=== PATIENT | male | born 1965 | race Caucasian/White ===

== ENCOUNTER 2020-04-29 11:50 | Emergency (ER) | payer BC, SELFPAY ==
[2020-04-29 12:24] VITALS: BP 133/79; PULSE 76; RESP 19; TEMP 36.8; O2SAT 99; BMI 30.1
--- NOTE | 2020-04-29 12:28 | HMH.EDUTC ---
[facility] [place]ression: Encounter for laboratory testing for COVID-19 virus Disposition: Home, Self-Care Condition on Discharge: Good Instructions: Preventing the Spread of Coronavirus Discharge Instructions Additional Instructions: You was tested for today for COVID19 your test result should be back tomorrow evening after 3pm, you may call back later in the evening tomorrow to see if your test results are back and the result You was given a handout with instructions for Self Quarantine and Self isolation for while you wait on test results and what to do if they are positive Return if needed Straight to ER if any life threatening symptoms Referrals: PCP,No [Primary Care Provider] - As needed Forms: Work/School Release Time of Disposition: 12:32 Medical Decision Making - Ty Inquiry Pt receiving controlled substance: No Ty was queried for this patient: No Vital Signs: 04/29/20 12:24 Temperature 98.2 F Temperature Source Oral Pulse Rate [Right Brachial] 76 Respiratory Rate 19 Blood Pressure [Right Arm] 133/79 Blood Pressure Mean [Right Arm] 97 Blood Pressure Source [Right Arm] Automatic Cuff Blood Pressure Position [Right Arm] Sitting 02 Sat by Pulse Oximetry 99 Oxygen Delivery Method Room Air Orders (Tests/Meds): ORDERS Category Date Time Status Covid-19 Nasal PCR ([facility]) Routine Lab 04/29/20 12:00 Ordered Covid-19 Nasal PCR Sendout [facility] Stat Lab 04/29/20 12:[address] [facility] [place] - General Stated complaint: exposed to covid Time Seen by Provider: 04/29/20 12:28 Mode of Arrival: Ambulatory Source of Information: Patient Limitations: No Limitations Description of Symptoms (Recalled from Triage Doc. by RN): PATIENT NEEDING COVID TEST. EXPOSED TO COWORKER WHO TESTED POSITIVE YESTERDAY, DENIES SYMPTOMS HEENT Symptoms (Recalled from RN notes): No Resp Symptoms (Recalled from RN notes): No Skin Symptoms (Recalled from RN notes): No MS Symptoms (Recalled from RN notes): No Functional Status (Recalled from RN notes): WNL - History of Present Illness Provider Complaint: Patient states that they was sent for COVID testing due to recent exposure to another employee that recently tested positive for COVID States that he isnt having any symptoms - Related Data Allergies Allergy/AdvReac Type Severity Reaction Status Date / Time No Known Allergies Allergy Verified 10/15/19 11:23 - Worker's Comp Is this a Worker's Comp case?: No [facility] History - Hepatitis A Screen Drug use history?: No High risk sexual behaviors?: No History of sexually transmitted infection?: No Currently employed?: No Childcare worker?: No Do you have indoor plumbing?: Yes Do you have electricity?: Yes Attestation statement:: This patient has been screened for Hepatitis A risk factors. I have reviewed the patient's past medical history: Yes - Social History Alcohol Intake: never Occupational Status: other ROS Obtained: Yes All systems reviewed & no additional complaints, Yes Systems reviewed as appropriate & no additional complaints - Constitutional Constitutional: Reports system reviewed and no additional complaints, except as docu, Denies body ache, Denies chills, Denies fever(s) - ENT Ears, Nose, Mouth, and Throat: Reports system reviewed and no additional complaints, except as docu, Denies nasal congestion, Denies nasal discharge, Denies sore throat - Cardiovascular Cardiovascular: Reports system reviewed and no additional complaints, except as docu - Respiratory Respiratory: No cough, No dyspnea - Gastrointestinal Gastrointestingal: Denies: diarrhea, nausea, vomiting Physical Exam - General General appearance: alert, in no apparent distress - ENT ENT exam: Present: normal exam, normal oropharynx, mucous membranes moist, TM's normal bilaterally, normal external ear exam - Respiratory Respiratory exam: Present: normal lung sounds bilaterally. Absent: respiratory distress - Card
[2020-04-29 12:43] VITALS: BP 133/79; PULSE 76; RESP 19; TEMP 36.8; O2SAT 99
[2020-04-30 13:28] LABS: Covid-19 Nasal PCR Sendout Lex NOT DETECTED
== END 2020-04-29 12:45 | disposition home or self-care (01) ==
PROVIDERS: Emergency Provider Nurse Practitioner
DX: Z20.828 Contact with and (suspected) exposure to other viral communicable diseases (principal)
CPT/HCPCS: 99201; U0004

== ENCOUNTER 2020-06-07 08:06 | Emergency (ER) | payer BC, SELFPAY ==
[2020-06-07 08:12] VITALS: BP 119/82; PULSE 89; RESP 16; TEMP 36.6; O2SAT 98; BMI 30.1
--- NOTE | 2020-06-07 08:21 | XR_ITS ---
PROCEDURE: XR SHOULDER RT MIN 2V CLINICAL INDICATION: pain Right shoulder pain COMPARISON: No exams were available for comparison FINDINGS: There are mild osteoarthritic changes of the right acromioclavicular joint and glenohumeral joint. No acute fracture or dislocation. No lytic or blastic change Other findings:None. IMPRESSION: Mild osteoarthritis Dictated by: Michael Ramon MD 06/07/2020 09:14 Michael Ramon MD in [place] 06/07/2020 09:14
--- NOTE | 2020-06-07 08:21 | CT_ITS ---
PROCEDURE: CT CERVICAL SPINE WO CON CLINICAL INDICATION: pain Neck pain radiating into both shoulders. COMPARISON: No exams were available for comparison TECHNIQUE: Axial images obtained with sagittal and coronal reformats. All CT scans at the facility use one or more dose reduction, viz: automated exposure control, ma/kV adjustment per patient size (including targeted exams where dose is matched to indication, i.e. head), or iterative reconstruction technique. Axial spiral CT scanning performed of the cervical spine beginning at the base of the skull and continuing to the upper T-spine. 3-D multiplanar reconstruction with 3-D manipulation of volumetric data set in image rendering was completed by the radiologist and/or technologist with the supervision of the radiologist on independent workstation. FINDINGS: Normal alignment. No fracture or dislocation. C2-C3: Small broad-based central disc protrusion. C3-C4: Degenerative disc disease with broad-based central disc protrusion-disc osteophyte complex with canal stenosis of 7 mm and bilateral foraminal narrowing from uncovertebral hypertrophy. C4-C5: Degenerative disc disease with minimal posterior disc ossification. There is moderate to severe right foraminal narrowing from facet and uncovertebral hypertrophy. C5-C6: Degenerate disc disease with canal stenosis. Left lateral recess and foraminal narrowing from uncovertebral hypertrophy with mild right foraminal narrowing from uncovertebral hypertrophy. C6-C7 and C7-T1: Unremarkable. Thyroid gland is enlarged on both sides right greater than left. Scattered small nodes are present in the neck. IMPRESSION: Multilevel cervical spondylosis with degenerative disc disease, canal stenosis and lateral recess and foraminal narrowing. Please see above for detailed description at each level. Dictated by: Michael Ramon MD 06/07/2020 09:12 Michael Ramon MD in [place] 06/07/2020 09:12
--- NOTE | 2020-06-07 08:39 | XR_ITS ---
PROCEDURE: XR SHOULDER LT MIN 2V CLINICAL INDICATION: pain Left shoulder pain COMPARISON: CR XR SHOULDER RT MIN 2V from 06/07/2020 FINDINGS: Moderate to severe osteoarthritic changes are present at the acromioclavicular joint with bony hypertrophy. There is subacromial stenosis. Mild osteoarthritic changes are present at the glenohumeral joint with some subchondral cystic changes at the greater tuberosity. No acute fracture or dislocation. There is an old fracture of the left 2nd rib. Other findings:None. IMPRESSION: Osteoarthritic changes with subacromial stenosis. Dictated by: Michael Ramon MD 06/07/2020 09:14 Michael Ramon MD in [place] 06/07/2020 09:14
--- NOTE | 2020-06-07 08:43 | HMH.EDGENADL ---
ED Disposition Clinical Impression: Cervical spondylolysis, Herniated disc, cervical Degenerative joint disease Qualifiers: Osteoarthritis location: shoulder Osteoarthritis type: unspecified Laterality: bilateral Qualified Code(s): M19.011 - Primary osteoarthritis, right shoulder; M19.012 - Primary osteoarthritis, left shoulder Disposition: Home, Self-Care Condition on Discharge: Good Instructions: DI for Low Back Pain Additional Instructions: You were seen on an emergency basis. It is very important that you follow up with your primary care provider and/or specialist as we discussed within 2 days. All labs and imaging were obtained and interpreted here to rule out life threatening emergencies, but your final results should be reviewed by your primary doctor at your follow up appointment. Please return to the emergency department if any of your symptoms worsen, or if they do not improve as we discussed. Prescriptions: Cyclobenzaprine HCl [Flexeril 10mg tablet] 5 mg PO Q8HP PRN 30 Days #10 tab PRN Reason: Muscle Spasm Transmission Status: Pending to [id number] Referrals: PCP,No [Primary Care Provider] - Dell Holcomb MD [Staff Physician] - - Critical Care Critical Care Time: No Attestation: On 06/07/20, the high probability of a clinically significant, sudden or life threatening deterioration of the following system(s) required my full and direct attention, intervention and personal management. The time I documented below is in addition to time spent performing reported procedures but includes the following listed in this critical care notation. Medical Decision Making - Medical Records Medical records reviewed: Yes: I reviewed the patient's medical records. - Ty Inquiry Pt receiving controlled substance: No Vital Signs: 06/07/20 08:12 Temperature 98 F Temperature Source Oral Pulse Rate [Radial] 89 Respiratory Rate 16 Blood Pressure [Right Arm] 119/82 Blood Pressure Mean [Right Arm] 94 Blood Pressure Position [Right Arm] Sitting 02 Sat by Pulse Oximetry 98 Oxygen Delivery Method Room Air Orders (Tests/Meds): ED MEDICATIONS Discontinued Medications Generic Name Dose Route Start Last Admin Trade Name Freq PRN Reason Stop Dose Admin Diazepam 5 mg 06/07/20 08:20 06/07/20 08:37 Diazepam 5mg Tablet PO 06/07/20 08:21 5 mg ONCE ONE Administration Medical Decision Narrative: 55-year-old male presenting with atraumatic neck and shoulder pain. Nontoxic, afebrile, hemodynamically stable, nonfocal, neuro intact. X-ray of the right shoulder showed degenerative joint disease as did the x-ray of the left shoulder including the AC joint. CT C-spine without IV contrast was obtained and demonstrated multilevel degenerative disc disease, herniation and spondylolysis. Symptoms markedly improved after 5 mg of oral Valium. I will prescribe him Flexeril and he will continue to take Motrin and follow-up with orthopedics. General Adult HPI - General Chief complaint: Back Pain/Injury Stated complaint: shoulder and neck pain AO 06/05 Time Seen by Provider: 06/07/20 08:30 Mode of Arrival: Ambulatory Limitations: No Limitations Description of Symptoms (Recalled from ER Triage Doc. by RN): to ed per pvt car with c/o upper back pain across shoulders and neck starting th. after work states has been doing alot of lifting and pulling at work. denies known injury. 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 He states that he has been sore with decreased range of motion of his right shoulder due to the pain. No fever, chills, nausea, vomiting, chest pain, cough, shortness of breath, radicular symptoms, weakness. Ibuprofen has helped the pain. - Related Data Previo
[2020-06-07 10:03] VITALS: BP 122/74; PULSE 78; RESP 16; TEMP 36.6
== END 2020-06-07 10:04 | disposition home or self-care (01) ==
PROVIDERS: Emergency Provider Physician Assistant
DX: M43.02 Spondylolysis, cervical region (principal); M50.30 Other cervical disc degeneration, unspecified cervical region; M19.011 Primary osteoarthritis, right shoulder; X50.0XXA Overexertion from strenuous movement or load, initial encounter
CPT/HCPCS: 72125; 73030; 99282

== ENCOUNTER 2020-11-03 10:45 | Emergency (ER) | payer BC, SELFPAY ==
[2020-11-03 11:02] VITALS: BP 157/80; PULSE 80; RESP 14; TEMP 36.7; O2SAT 97; BMI 28.8
--- NOTE | 2020-11-03 11:07 | HMH.EDUTC ---
[facility] [place] Clinical Impression: Exposure to COVID-19 virus Acute bronchitis Qualifiers: Bronchitis organism: unspecified organism Qualified Code(s): J20.9 - Acute bronchitis, unspecified Disposition: Home, Self-Care Condition on Discharge: Good Instructions: Preventing the Spread of Coronavirus Discharge Instructions Additional Instructions: Drink plenty of fluids. Take tylenol for pain or fever. Return if you begin to have difficulty breathing. Follow up with your regular doctor. GO TO THE ER FOR ANY WORSENING SYMPTOMS Prescriptions: Benzonatate [Tessalon Perle 100mg Cap] 100 mg PO TIDP PRN #30 cap PRN Reason: Cough Transmission Status: Received by [id number] Azithromycin [Z-Addison 250mg Tab*] 250 mg PO UD DOSE PK #6 tab Transmission Status: Received by [facility] Referrals: PCP,No [Primary Care Provider] - Forms: Work/School Release Time of Disposition: 11:08 Medical Decision Making - Medical Records Medical records reviewed: No: I reviewed the patient's medical records. - Ty Inquiry Pt receiving controlled substance: No Vital Signs: 11/03/20 11:02 11/03/20 11:10 Temperature 98.1 F 98 F Temperature Source Oral Pulse Rate 77 Pulse Rate [Left] 80 Respiratory Rate 14 14 Blood Pressure 142/79 H Blood Pressure [Right Arm] 157/80 H Blood Pressure Mean [Right Arm] 105 Blood Pressure Source [Right Arm] Automatic Cuff Blood Pressure Position [Right Arm] Sitting 02 Sat by Pulse Oximetry 97 Oxygen Delivery Method Room Air [facility] [place] HPI - General Stated complaint: cov test Time Seen by Provider: 11/03/20 11:07 - History of Present Illness Provider Complaint: He states that he has been having a cough, chest congestion, and feeling bad for the past 2 days. He denies any known exposure to covid-19, but he feels like he needs to be tested. He denies any shortness of breath. - Related Data Previous Rx's Medication Instructions Recorded Azithromycin [Z-Addison 250mg Tab*] 250 mg PO UD DOSE PK #6 tab 11/03/20 Benzonatate [Tessalon Perle 100mg 100 mg PO TIDP PRN #30 cap 11/03/20 Cap] Allergies Allergy/AdvReac Type Severity Reaction Status Date / Time No Known Allergies Allergy Verified 11/03/20 11:06 [facility] History - Hepatitis A Screen Attestation statement:: This patient has been screened for Hepatitis A risk factors. I have reviewed the patient's past medical history: Yes ROS Obtained: Yes All systems reviewed & no additional complaints - Constitutional Constitutional: Reports chills, Denies fever(s), Reports poor appetite, Reports malaise - Eyes Eyes: Denies eye discharge - ENT Ears, Nose, Mouth, and Throat: Reports as per HPI - Cardiovascular Cardiovascular: Denies chest pain - Respiratory Respiratory: Reports chest congestion, Reports cough, Denies dyspnea, Denies stridor, Denies wheezing Physical Exam - General General appearance: alert, in no apparent distress - Head Head exam: atraumatic, normocephalic, normal inspection - Eye Eye exam: Present: normal appearance, PERRL, EOMI - ENT ENT exam: Present: normal exam, normal oropharynx, mucous membranes moist, TM's normal bilaterally, normal external ear exam - Neck Neck exam: Present: normal inspection, full ROM, trachea midline. Absent: meningismus, lymphadenopathy - Chest Chest inspection: Present: normal inspection, symmetric chest wall rise. Absent: tenderness - Respiratory Respiratory exam: Present: normal lung sounds bilaterally. Absent: respiratory distress - Cardiovascular Cardiovascular exam: Present: regular rate, normal rhythm. Absent: JVD - Abdominal Exam Abdominal exam: Present: soft, normal bowel sounds. Absent: distention, tenderness, guarding - Extremities Exam Extremities exam: Present: normal inspection, full ROM, normal capillary refill. Absent: calf tenderness - Back Exam Back exam: Present: normal inspection. Abs
[2020-11-03 11:10] VITALS: BP 142/79; PULSE 77; RESP 14; TEMP 36.6
== END 2020-11-03 11:24 | disposition home or self-care (01) ==
PROVIDERS: Emergency Provider Nurse Practitioner Family
DX: Z20.822 Contact with and (suspected) exposure to COVID-19 (principal); J20.9 Acute bronchitis, unspecified
CPT/HCPCS: 99202; G0463; U0003

== ENCOUNTER 2021-01-26 23:27 | Emergency (ER) | payer BC, SELFPAY ==
[2021-01-26 23:44] VITALS: BP 158/89; PULSE 89; RESP 14; TEMP 37.7; O2SAT 99; BMI 28.8
--- NOTE | 2021-01-26 23:52 | XR_ITS ---
PROCEDURE INFORMATION: Exam: XR Chest Exam date and time: 01/26/2021 11:52 PM Age: 55 years old Clinical indication: Patient HX: Inspiratory discomfort after covid shot #2 yesterday nausea, dizzy, weak TECHNIQUE: Imaging protocol: XR of the chest. Views: 2 views. COMPARISON: CR CXR CHEST(2 VIEWS-NOT PORTABLE) 10/12/2016 12:19 AM FINDINGS: Lungs: There is mild perihilar interstitial prominence of unknown acuity. There is no lobar consolidation. Pleural spaces: There is no pleural effusion or pneumothorax. Heart/Mediastinum: The cardiac silhouette and mediastinal contours are unremarkable. Bones/joints: The bones are grossly intact with mild spondylosis of the thoracic spine. IMPRESSION: Mild perihilar interstitial prominence of unknown acuity.
[2021-01-27 00:02] LABS: Basophils % 0.4 % (0.1-2.0); Eosinophils # 0.1 K/mm3 (0.0-0.4); Eosinophils % 2.1 % (0.1-12.0); Hematocrit 45.1 % (42.0-52.0); Hemoglobin 16.4 g/dL (14.1-18.0); Lymphocytes # 0.9 K/mm3 (0.7-4.5); Lymphocytes % 14.4 % (10-50); Mean Corpuscular HGB Conc 36.3 g/dL (31.8-35.4); Mean Corpuscular Volume 88.3 fl (80-94); Mean Platelet Volume 7.1 fl (7.4-10.4); Monocytes # 0.4 K/mm3 (0.1-1.0); Monocytes % 5.7 % (1.7-9.3); Neutrophils # 4.9 K/mm3 (1.8-7.8); Neutrophils % 77.3 % (37.0-80.0); Platelet Count 239 K/mm3 (142-424); Red Cell Distribution Width 13.2 % (11.5-17.5); White Blood Count 6.3 K/mm3 (4.8-10.8)
--- NOTE | 2021-01-27 00:03 | ECG_ITS ---
APPROVED REPORT Exam: Resting ECG HR:82 bpm ECG Measurements Heart Rate 82 AXES NH 150 P 57 QRSd 96 QRS 43 QT 346 T 22 QTc 404 Conclusion Normal sinus rhythm Incomplete right bundle branch block Cannot rule out Anterior infarct, age undetermined Abnormal ECG Electronically signed by : Barron Vail, 01/27/2021 21:18:14
[2021-01-27 00:10] LABS: Alanine Aminotransferase 33 U/L (12-78); Albumin Level 4.4 g/dl (3.5-5.0); Albumin/Globulin Ratio 1.4 (1.1-1.8); Alkaline Phosphatase 114 U/L (38-126); Aspartate Amino Transferase 32 U/L (17-59); Blood Urea Nitrogen 13 mg/dl (9-20); Calcium 8.8 mg/dl (8.4-10.2); Carbon Dioxide 22 mmol/L (22.0-30.0); Creatinine Clearance Estimated 95 mL/min (50-200); Estimated Glomerular Filt Rate 87 ml/min (>60); GFR (African American) 105 ML/MIN (>60); Globulin 3.1 g/dL (1.3-3.2); Glucose 156 mg/dl (74-100); Potassium 3.3 mmoL/L (3.5-5.1); Sodium 135 mmol/L (136-145); Total Protein,Serum 7.5 g/dl (6.3-8.2)
[2021-01-27 00:28] LABS: Troponin I < 0.01 ng/ml (0.00-0.034)
[2021-01-27 00:34] LABS: Erythrocyte Sedimentation Rate 9 mm/hr (0-20)
[2021-01-27 00:37] LABS: Anion Gap 15.3 mEq/L (5-15); Chloride 101 mmol/L (98-107)
--- NOTE | 2021-01-27 00:37 | HMH.EDFEV ---
ED Disposition Clinical Impression: Adverse reaction to COVID-19 vaccine Disposition: Home, Self-Care Condition on Discharge: Good Instructions: DI for Fever (Symptom) -- Adult Additional Instructions: fluids and call pcp for follow up Referrals: Provider,Referral, MD [Primary Care Provider] - - Critical Care Critical Care Time: No Attestation: On 01/26/21, the high probability of a clinically significant, sudden or life threatening deterioration of the following system(s) required my full and direct attention, intervention and personal management. The time I documented below is in addition to time spent performing reported procedures but includes the following listed in this critical care notation. Medical Decision Making - Medical Records Medical records reviewed: Yes: I reviewed the patient's medical records. - Ty Inquiry Pt receiving controlled substance: No Vital Signs: 01/26/21 23:44 Temperature 99.8 F H Temperature Source Oral Pulse Rate [Right Brachial] 89 Respiratory Rate 14 Blood Pressure [Right Arm] 158/89 H Blood Pressure Mean [Right Arm] 112 Blood Pressure Source [Right Arm] Automatic Cuff Blood Pressure Position [Right Arm] Sitting 02 Sat by Pulse Oximetry 99 Oxygen Delivery Method Room Air - Lab Data Lab results reviewed: Yes: I reviewed the patient's lab results. Lab Results 01/26/21 23:40: Troponin I < 0.01 01/26/21 23:40: WBC 6.3, RBC 5.10, Hgb 16.4, Hct 45.1, MCV 88.3, MCH 32.0 H, MCHC 36.3 H, RDW 13.2, Plt Count 239, MPV 7.1 L, Neut % (Auto) 77.3, Lymph % (Auto) 14.4, [place] % (Auto) 5.7, Eos % (Auto) 2.1, Baso % (Auto) 0.4, Neut # (Auto) 4.9, Lymph # (Auto) 0.9, [place] # (Auto) 0.4, Eos # (Auto) 0.1, Baso # (Auto) 0.0 01/26/21 23:40: Sodium 135 L, Potassium 3.3 L, Chloride 101, Carbon Dioxide 22, Anion Gap 15.3 H, BUN 13, Creatinine 0.90, Estimated Creat Clear 95, Estimated GFR 87, Est GFR ( Amer) 105, Glucose 156 H, Calcium 8.8, Total Bilirubin 1.0, AST 32, ALT 33, Alkaline Phosphatase 114, Total Protein 7.5, Albumin 4.4, Globulin 3.1, Albumin/Globulin Ratio 1.4 01/26/21 23:40: ESR 9 Result diagrams: 01/26/21 23:40 01/26/21 23:40 Orders (Tests/Meds): ED MEDICATIONS Generic Name Dose Route Start Last Admin Trade Name Freq PRN Reason Stop Dose Admin Sodium Chloride 1,000 mls @ 999 mls/hr 01/26/21 23:45 01/26/21 23:53 Sod Chlor 0.9% 1000ml Bag IV 01/27/21 00:45 999 mls/hr .Q1H1M CHRISTI Administration Discontinued Medications Generic Name Dose Route Start Last Admin Trade Name Freq PRN Reason Stop Dose Admin Acetaminophen 1,000 mg 01/26/21 23:52 01/26/21 23:55 Acetaminophen 500mg Tab PO 01/26/21 23:53 1,000 mg ONCE ONE Administration Ketorolac Tromethamine 30 mg 01/26/21 23:51 01/26/21 23:54 Ketorolac 30mg/Ml Vial IV 01/26/21 23:52 30 mg ONCE ONE Administration Ondansetron HCl 4 mg 01/26/21 23:51 01/26/21 23:54 Ondansetron 4mg/2ml Vial IV 01/26/21 23:52 4 mg ONCE ONE Administration ORDERS Category Date Time Status XR chest 2V Stat Exams 01/26/21 23:52 Taken C-Reactive Protein Stat Lab 01/26/21 23:40 Received Procalcitonin Stat Lab 01/26/21 23:40 Received Troponin I Q3H Lab 01/27/21 03:00 Ordered Troponin I Q3H Lab 01/27/21 06:00 Ordered - Radiology Data #1 Image(s): Chest Image Reviewed: Yes I reviewed the patient's radiology image Preliminary Findings: Normal/NAD - ECG Data Tracing #1 Normal Sinus Rhythm: Yes Ischemic changes: non-specific ST-T wave changes Medical Decision Narrative: reaction after covid-19 vaccine Fever HPI - General Chief Complaint: Fever Stated Complaint: nausea,dizzy,weak Time Seen by Provider: 01/27/21 00:00 Mode of Arrival: Family Vehicle Source of Information: Patient, Spouse, Medical Record Limitations: No Limitations Description of Symptoms (Recalled from ER Triage Doc. by RN): pt received second dose of covid vaccine yesterday and today
[2021-01-27 01:01] LABS: C-Reactive Protein 36.9 mg/L (0-4)
[2021-01-27 01:11] VITALS: BP 146/82; PULSE 84; RESP 14; TEMP 37.7; O2SAT 99
[2021-01-27 01:15] LABS: Procalcitonin 0.164 ng/mL (0.0-2.0)
== END 2021-01-27 01:14 | disposition home or self-care (01) ==
PROVIDERS: Emergency Provider Emergency Medicine
DX: T50.Z95A Adverse effect of other vaccines and biological substances, initial encounter (principal); R50.9 Fever, unspecified
CPT/HCPCS: 71046; 80053; 84145; 84484; 85025; 85651; 86140; 93005; 96365; 96375; 99282; J2405

== ENCOUNTER → 2021-04-17 11:11 | Outpatient (CLI) | payer BC, SELFPAY | PROVIDERS: Visit Provider Nurse Practitioner | DX: Z20.822 Contact with and (suspected) exposure to COVID-19 (principal) | CPT/HCPCS: C9803; U0003; U0005 ==

== ENCOUNTER 2021-10-22 17:35 | Emergency (ER) | payer BC, SELFPAY ==
[2021-10-22 19:30] VITALS: BP 146/90; PULSE 86; RESP 19; TEMP 36.6; O2SAT 98; BMI 29.2
[2021-10-22 19:43] LABS: Strep Scrn Group A (Rapid) Negative (Negative)
[2021-10-22 19:48] LABS: UTC Influenza A Antigen Negative (Negative); UTC Influenza B Antigen Negative (Negative)
[2021-10-22 19:59] VITALS: BP 146/90; PULSE 86; RESP 19; TEMP 36.6; O2SAT 98
--- NOTE | 2021-10-22 20:19 | HMH.EDUTC ---
[facility] [place] Disposition Clinical Impression: URI (upper respiratory infection) Qualifiers: URI type: unspecified URI Qualified Code(s): J06.9 - Acute upper respiratory infection, unspecified Disposition: Home, Self-Care Condition on Discharge: Good Instructions: Sore Throat, DI for Sinusitis, Sinusitis Additional Instructions: *Monitor Temp, Over the counter Motrin or Tylenol as directed/as needed Tylenol every 4 hours and Motrin every 6 hours (as long as your family doctor has told you that you can take it) for fever or pain. and straight to ER if unable to lower temp less than 101.0 after medication given *Warm salt water gargles may help to soothe the throat *Throat Lozenges *Warm fluids like tea with honey may help to soothe the throat *Sleep elevated *Humidifier/Vaporizer Take medication as prescribed Return if needed Your throat swab was sent for culture. Those results are typically sent to your primary care. Be sure to follow up in 2-3 days with your family doctor/primary care physician if no improvement so they can review those result and treat if necessary. If you don?t have a primary care doctor, I recommend you get one but in the mean time, you will have to return to a walk in clinic Follow up IMMEDIATELY for new or worsening symptoms or no Noticeable improvement over the next 48-72 hours. 911 for difficulty breathing or swallowing Prescriptions: Benzonatate [Benzonatate 100mg cap] 100 mg PO Q8HP PRN #15 cap PRN Reason: Cough Transmission Status: Pending to [facility] Fluticasone Propionate [Flonase 50mcg nasal spray 16gm] 1 spr NS DAILY #1 each Transmission Status: Pending to [facility] Azithromycin [Z-Addison 250mg Tab] 250 mg PO DIRECTED #6 tab Transmission Status: Pending to [facility] Referrals: Provider,Referral, MD [Primary Care Provider] - As needed Forms: Work/School Release Time of Disposition: 20:28 Medical Decision Making - Ty Inquiry Pt receiving controlled substance: No Ty was queried for this patient: No Vital Signs: 10/22/21 19:30 10/22/21 19:59 Temperature 97.8 F 97.8 F Temperature Source Oral Pulse Rate 86 Pulse Rate [Right Brachial] 86 Respiratory Rate 19 19 Blood Pressure 146/90 H Blood Pressure [Right Arm] 146/90 H Blood Pressure Mean [Right Arm] 108 Blood Pressure Source [Right Arm] Automatic Cuff Blood Pressure Position [Right Arm] Sitting 02 Sat by Pulse Oximetry 98 Oxygen Delivery Method Room Air - Lab Data Lab results reviewed: Yes: I reviewed the patient's lab results. Lab Results 10/22/21 19:20: Group A Strep Rapid Negative 10/22/21 19:24: Influenza Type A Ag Negative, Influenza Type B Ag Negative Orders (Tests/Meds): ORDERS Category Date Time Status Strep Screen Confirmation Stat Micro 10/22/21 19:20 Received [facility] [place] HPI - General Stated complaint: sore throat RODRIGUEZ Weakness Time Seen by Provider: 10/22/21 20:19 Mode of Arrival: Ambulatory Source of Information: Patient Limitations: No Limitations Description of Symptoms (Recalled from Triage Doc. by RN): PATIENT C/O SORE THROAT, HEADACHE, AND WEAKNESS SINCE THIS MORNING HEENT Symptoms (Recalled from RN notes): Yes Resp Symptoms (Recalled from RN notes): No Skin Symptoms (Recalled from RN notes): No MS Symptoms (Recalled from RN notes): No Functional Status (Recalled from RN notes): WNL - History of Present Illness Provider Complaint: Patient states that his throat feels sore and raw and has pain when he swallows State that he has pressure in his sinus and cough State that today he has continued to feel worse so he came in to get checked - Related Data Previous Rx's Medication Instructions Recorded Azithromycin [Z-Addison 250mg Tab] 250 mg PO DIRECTED #6 tab 10/22/21 Benzonatate [Benzonatate 100mg 100 mg PO Q8HP PRN #15 cap 10/22/21 cap] Fluticasone Propionate [Flonase 1 spr NS DAILY #1 each 10/22/21 50mcg nasal spray
== END 2021-10-22 20:38 | disposition home or self-care (01) ==
PROVIDERS: Emergency Provider Nurse Practitioner
DX: J06.9 Acute upper respiratory infection, unspecified (principal); J02.9 Acute pharyngitis, unspecified; R53.1 Weakness
CPT/HCPCS: 87430; 87804; 99213; G0463

== ENCOUNTER 2022-02-03 19:57 | Emergency (ER) | payer BC, SELFPAY ==
[2022-02-03 20:00] VITALS: BP 151/68; PULSE 99; RESP 18; TEMP 38.2; O2SAT 100; BMI 29.5
[2022-02-03 21:50] LABS: Influenza A, PCR Not Detected (NotDetected); Influenza B, PCR Not Detected (NotDetected)
--- NOTE | 2022-02-03 21:56 | XR_ITS ---
PROCEDURE INFORMATION: Exam: XR Chest Exam date and time: 02/03/2022 9:55 PM Age: 56 years old Clinical indication: Fever TECHNIQUE: Imaging protocol: Radiologic exam of the chest. Views: 2 views. COMPARISON: CR XR CHEST 2V 01/26/2021 11:58 PM FINDINGS: Lungs: No acute airspace consolidation. No appreciable pulmonary edema. Pleural spaces: No pleural effusion. No pneumothorax. Heart/Mediastinum: Cardiomediastinal silouhette is within normal limits. Bones/joints: No acute osseous abnormality. IMPRESSION: No evidence of acute cardiopulmonary disease.
[2022-02-03 22:00] VITALS: BP 139/75; PULSE 92; O2SAT 99
[2022-02-03 22:28] LABS: Alanine Aminotransferase 39 U/L (12-78); Albumin Level 4.3 g/dl (3.5-5.0); Albumin/Globulin Ratio 1.4 (1.1-1.8); Alkaline Phosphatase 105 U/L (38-126); Anion Gap 11.5 mEq/L (5-15); Aspartate Amino Transferase 41 U/L (17-59); Bilirubin,Total 0.7 mg/dl (0.2-1.3); Blood Urea Nitrogen 16 mg/dl (9-20); Calcium 8.8 mg/dl (8.4-10.2); Carbon Dioxide 28 mmol/L (22.0-30.0); Chloride 100 mmol/L (98-107); Creatinine Clearance Estimated 86 mL/min (50-200); Estimated Glomerular Filt Rate 77 ml/min (>60); GFR (African American) 93 ML/MIN (>60); Glucose 110 mg/dl (74-100); Potassium 3.5 mmoL/L (3.5-5.1); Sodium 136 mmol/L (136-145); Total Protein,Serum 7.3 g/dl (6.3-8.2)
[2022-02-03 22:30] LABS: Coronavirus 19, PCR Detected (NotDetected)
--- NOTE | 2022-02-03 22:32 | HMH.EDURI ---
ED Disposition Clinical Impression: COVID-19 Disposition: Home, Self-Care Condition on Discharge: Good Instructions: DI for COVID-19 (Suspected or Confirmed ) Additional Instructions: fluids and advil/tyenpl and call pcp for follow up Prescriptions: dexAMETHasone [Decadron] 6 mg PO DAILY #5 tab Transmission Status: Pending to [id number] Referrals: Provider,Referral, MD [Primary Care Provider] - - Critical Care Critical Care Time: No Attestation: On 02/03/22, the high probability of a clinically significant, sudden or life threatening deterioration of the following system(s) required my full and direct attention, intervention and personal management. The time I documented below is in addition to time spent performing reported procedures but includes the following listed in this critical care notation. Medical Decision Making - Medical Records Medical records reviewed: Yes: I reviewed the patient's medical records. - Ty Inquiry Pt receiving controlled substance: No Vital Signs: 02/03/22 20:00 02/03/22 22:00 Temperature 100.7 F H Temperature Source Oral Pulse Rate 92 H Pulse Rate [Right] 99 H Respiratory Rate 18 Blood Pressure 139/75 Blood Pressure [Right Arm] 151/68 H Blood Pressure Mean [Right Arm] 95 02 Sat by Pulse Oximetry 100 99 Oxygen Delivery Method Room Air - Lab Data Lab results reviewed: Yes: I reviewed the patient's lab results. Lab Results 02/03/22 21:47: SARS-CoV-2 (PCR) Detected A, Influenza A Untype (PCR) Not detected, Influenza Type B (PCR) Not detected 02/03/22 22:05: WBC 6.2, RBC 4.78, Hgb 15.4, Hct 42.6, MCV 89.1, MCH 32.1 H, MCHC 36.1 H, RDW 13.3, Plt Count 264, MPV 6.9 L, Neut % (Auto) 73.3, Lymph % (Auto) 16.1, Rich % (Auto) 8.1, Eos % (Auto) 1.4, Baso % (Auto) 1.0, Neut # (Auto) 4.6, Lymph # (Auto) 1.0, Rich # (Auto) 0.5, Eos # (Auto) 0.1, Baso # (Auto) 0.1 02/03/22 22:05: Sodium 136, Potassium 3.5, Chloride 100, Carbon Dioxide 28, Anion Gap 11.5, BUN 16, Creatinine 1.00, Estimated Creat Clear 86, Estimated GFR 77, Est GFR ( Amer) 93, Glucose 110 H, Calcium 8.8, Total Bilirubin 0.7, AST 41, ALT 39, Alkaline Phosphatase 105, C-Reactive Protein 20.2 H, Total Protein 7.3, Albumin 4.3, Globulin 3.0, Albumin/Globulin Ratio 1.4, Procalcitonin 0.124 Result diagrams: 02/03/22 22:05 02/03/22 22:05 Orders (Tests/Meds): ED MEDICATIONS Generic Name Dose Route Start Last Admin Trade Name Freq PRN Reason Stop Dose Admin Sodium Chloride 1,000 mls @ 999 mls/hr 02/03/22 22:15 02/03/22 22:22 Sod Chlor 0.9% 1000ml Bag IV 02/03/22 23:15 999 mls/hr .Q1H1M CHRISTI Administration Discontinued Medications Generic Name Dose Route Start Last Admin Trade Name Freq PRN Reason Stop Dose Admin Acetaminophen 1,000 mg 02/03/22 22:06 02/03/22 22:22 Acetaminophen 500mg Tab PO 02/03/22 22:07 1,000 mg ONCE ONE Administration Ketorolac Tromethamine 30 mg 02/03/22 22:06 02/03/22 22:22 Ketorolac 30mg/Ml Vial IV 02/03/22 22:07 30 mg ONCE ONE Administration Methylprednisolone Sodium Succinate 125 mg 02/03/22 22:06 02/03/22 22:22 Methylprednisolone Sod Succ 125mg Vial IV 02/03/22 22:07 125 mg ONCE ONE Administration ORDERS Category Date Time Status Complete Blood Count Auto Diff Stat Lab 02/03/22 22:05 Results Erythrocyte Sedimentation Rate Stat Lab 02/03/22 22:05 Results - Radiology Data #1 Image(s): Chest Image Reviewed: Yes I have reviewed radiologist's interpretation Preliminary Findings: Normal/NAD Medical Decision Narrative: pt with covid-19 with stable labs and xray URI/Sore Throat HPI - General Chief Complaint: Upper Respiratory Infection Stated Complaint: headache, ear ache and body aches Time Seen by Provider: 02/03/22 22:33 Mode of Arrival: Ambulatory Source of Information: Patient, Significant Other, Medical Record Limitations: No Limitations Description of Symptoms (Recalled from ER
[2022-02-03 22:33] LABS: C-Reactive Protein 20.2 mg/L (0-4)
[2022-02-03 22:35] LABS: Basophils # 0.1 K/mm3 (0-0.2); Eosinophils # 0.1 K/mm3 (0.0-0.4); Eosinophils % 1.4 % (0.1-12.0); Hematocrit 42.6 % (42.0-52.0); Hemoglobin 15.4 g/dL (14.1-18.0); Lymphocytes % 16.1 % (10-50); Mean Corpuscular HGB Conc 36.1 g/dL (31.8-35.4); Mean Corpuscular Hemoglobin 32.1 pg (27.0-31.2); Mean Corpuscular Volume 89.1 fl (80-94); Mean Platelet Volume 6.9 fl (7.4-10.4); Monocytes # 0.5 K/mm3 (0.1-1.0); Monocytes % 8.1 % (1.7-9.3); Neutrophils # 4.6 K/mm3 (1.8-7.8); Neutrophils % 73.3 % (37.0-80.0); Platelet Count 264 K/mm3 (142-424); Red Blood Count 4.78 M/mm3 (4.60-6.20); Red Cell Distribution Width 13.3 % (11.5-17.5); White Blood Count 6.2 K/mm3 (4.8-10.8)
[2022-02-03 22:47] LABS: Procalcitonin 0.124 ng/mL (0.0-2.0)
[2022-02-03 23:15] LABS: Erythrocyte Sedimentation Rate 9 mm/hr (0-20)
[2022-02-03 23:38] VITALS: BP 125/75; PULSE 75; RESP 18; TEMP 36.6; O2SAT 98
== END 2022-02-03 23:40 | disposition home or self-care (01) ==
PROVIDERS: Emergency Medicine; Emergency Provider Emergency Medicine
DX: U07.1 COVID-19 (principal)
CPT/HCPCS: 71046; 80053; 84145; 85025; 85651; 86140; 96361; 96374; 96375; 99284; C9803; U0003; U0005

== ENCOUNTER 2022-02-14 23:23 | Emergency (ER) | payer BC, SELFPAY ==
[2022-02-14 23:25] VITALS: BP 131/66; PULSE 89; RESP 18; TEMP 36.8; O2SAT 98; BMI 28.8
[2022-02-15 00:01] VITALS: BP 125/71; PULSE 83; O2SAT 99
[2022-02-15 00:30] VITALS: BP 118/64; PULSE 75; O2SAT 97
--- NOTE | 2022-02-15 00:47 | HMH.EDSKAF ---
ED Disposition Clinical Impression: Dermatitis, Pityriasis rosea Disposition: Home, Self-Care Condition on Discharge: Good Instructions: DI for Pityriasis Rosea Additional Instructions: use meds and see pcp for follow up Prescriptions: Minocycline HCl [Minocycline HCl 100mg Tab*] 100 mg PO BID #20 tab Transmission Status: Pending to [facility] #[id number] predniSONE [Prednisone 20mg Tab] 20 mg PO BID #10 tab Transmission Status: Pending to [facility] #[id number] Referrals: Provider,Referral, [Primary Care Provider] - - Critical Care Critical Care Time: No Attestation: On 02/14/22, the high probability of a clinically significant, sudden or life threatening deterioration of the following system(s) required my full and direct attention, intervention and personal management. The time I documented below is in addition to time spent performing reported procedures but includes the following listed in this critical care notation. Medical Decision Making - Medical Records Medical records reviewed: Yes: I reviewed the patient's medical records. - Ty Inquiry Pt receiving controlled substance: No Vital Signs: 02/14/22 23:25 02/15/22 00:01 02/15/22 00:30 Temperature 98.3 F Temperature Source Oral Pulse Rate 83 75 Pulse Rate [Left Radial] 89 Respiratory Rate 18 Blood Pressure 125/71 118/64 Blood Pressure [Right Arm] 131/66 Blood Pressure Mean [Right Arm] 87 Blood Pressure Source [Right Arm] Automatic Cuff Blood Pressure Position [Right Arm] Sitting 02 Sat by Pulse Oximetry 98 99 97 Oxygen Delivery Method Room Air Room Air Room Air 02/15/22 01:03 Temperature 98.3 F Temperature Source Pulse Rate 78 Pulse Rate [Left Radial] Respiratory Rate 16 Blood Pressure 139/79 Blood Pressure [Right Arm] Blood Pressure Mean [Right Arm] Blood Pressure Source [Right Arm] Blood Pressure Position [Right Arm] 02 Sat by Pulse Oximetry Oxygen Delivery Method Room Air Orders (Tests/Meds): ED MEDICATIONS Discontinued Medications Generic Name Dose Route Start Last Admin Trade Name Freq PRN Reason Stop Dose Admin Acetaminophen 1,000 mg 02/14/22 23:59 02/15/22 00:01 Acetaminophen 500mg Tab PO 02/15/22 00:00 1,000 mg ONCE ONE Administration Doxycycline Hyclate 100 mg 02/15/22 01:01 02/15/22 01:07 Doxycycline Hycl 100 Mg Tablet PO 02/15/22 01:02 100 mg ONCE ONE Administration Ibuprofen 600 mg 02/14/22 23:59 02/15/22 00:02 Ibuprofen 600 Mg Tablet PO 02/15/22 00:00 600 mg ONCE ONE Administration Prednisone 40 mg 02/15/22 01:02 02/15/22 01:07 Prednisone 20mg Tab PO 02/15/22 01:03 40 mg ONCE ONE Administration ORDERS Category Date Time Status Wound Culture and Gram Stain Stat Micro 02/15/22 00:40 Received Medical Decision Narrative: has rash nonspecific but could be pityriasis rosea Skin/Abscess/FB HPI - General Chief complaint: Skin/Abscess/Foreign Body Stated complaint: rash on right shoulder,RODRIGUEZ Time Seen by Provider: 02/15/22 00:47 Mode of Arrival: Ambulatory Source of Information: Patient, Spouse, Medical Record Limitations: No Limitations Description of Symptoms (Recalled from ER Triage Doc. by RN): RASH ON CHEST- SHOULDERS- AND HEADACHE. PT HAS TAKEN NO MEDICATIONS FOR HEADACHE OR RASH AT HOME. STATES PT WAS DX WITH COVID TWO WEEKS AGO. - History of Present Illness HPI narrative: had recent covid-19 and noted rash to neck followed by rash to ext and trunk but not to palms or mouth and no known contacts and no fever and not itchy - no tick bite complaint: rash Onset (ago): day(s) Tetanus up to date: unsure Location: generalized Severity: moderate Context: recent illness Associated symptoms: denies other symptoms Treatments prior to arrival: none - Related Data Previous Rx's Medication Instructions Recorded Minocycline HCl [Minocycline HCl 100 mg PO BID #20 tab 02/15/22 100mg T
--- NOTE | 2022-02-15 00:50 | PC.NURSE ---
PT/FAMILY UPDATED WITH PLAN OF CARE. BLANKETS AND DRINKS PROVIDED AT PATIENTS REQUEST. NO COMPLAINTS VOICED. NO ACUTE DISTRESS NOTED.
--- NOTE | 2022-02-15 00:55 | PC.NURSE ---
ER speaking with pt at he bedside at this time
[2022-02-15 01:01] VITALS: BP 139/79; PULSE 68; RESP 16; TEMP 36.8; O2SAT 98
[2022-02-15 01:03] VITALS: BP 139/79; PULSE 78; RESP 16; TEMP 36.8; O2SAT 97
== END 2022-02-15 01:39 | disposition home or self-care (01) ==
PROVIDERS: Emergency Provider Emergency Medicine
DX: L30.9 Dermatitis, unspecified (principal); L42 Pityriasis rosea
CPT/HCPCS: 87070; 87077; 87186; 87205; 99283; J1642

== ENCOUNTER 2022-06-09 14:21 | Emergency (ER) | payer BC, SELFPAY ==
[2022-06-09 15:35] VITALS: BP 134/90; PULSE 69; RESP 17; TEMP 36.8; O2SAT 97; BMI 28.8
--- NOTE | 2022-06-09 15:36 | EXP.UTC ---
Discharge Plan Disposition Patient Disposition: Home, Self-Care Condition: Good Prescriptions Prescriptions: New benzonatate [benzonatate] 100 mg capsule 100 mg PO TIDP PRN (Reason: Cough) Qty: 30 0RF ondansetron 4 mg Tablet,Disintegrating 4 mg PO Q8H PRN (Reason: Nausea) Qty: 12 0RF No Action prednisone 20 MG tablet 20 mg PO BID Qty: 10 0RF minocycline 100 MG tablet 100 mg PO BID Qty: 20 0RF Referrals Follow up/Referrals: Provider,Referral, MD [Primary Care Provider] - See instructions Activity Restrictions/Add. Instructions Additional Instructions/Restrictions: Drink plenty of fluids. Take tylenol or ibuprofen for pain or fever. Take the medications as directed. Follow up with your regular doctor. GO TO THE ER FOR ANY WORSENING SYMPTOMS Clinical Impressions Clinical Impression: Viral syndrome Stand Alone Forms Stand Alone Forms: Work/School Release Instructions Patient Instructions: DI for Viral Syndrome Discharge ED Provider: Joel Prince [facility] HPI General Stated complaint: RODRIGUEZ, Cough, Sore throat, BA, Chest congest. Time Seen by Provider: 06/09/22 15:33 History of Present Illness Provider Complaint: he states that for the past 2 days he has had sore throat, chills, body aches and low grade fever. Related Data Previous Rx's Medication Instructions Recorded minocycline 100 mg tablet 100 mg PO BID #20 tabs 02/15/22 prednisone 20 mg tablet 20 mg PO BID #10 tabs 02/15/22 benzonatate 100 mg capsule 100 mg PO TIDP PRN Cough #30 caps 06/09/22 ondansetron 4 mg disintegrating 4 mg PO Q8H PRN Nausea #12 tabs 06/09/22 tablet Allergies Allergy/AdvReac Type Severity Reaction Status Date / Time No Known Allergies Allergy Verified 06/09/22 15:44 [facility] Social History Smoking Status: Never smoker alcohol intake: never current occupational status: other Travel in the last 8 weeks: None household members: other housing: other ROS Obtained: Yes All systems reviewed & no additional complaints except as documented Constitutional Constitutional: Reports chills and Reports fever(s) Eyes Eyes: Denies eye discharge ENT Ears, Nose, Mouth, and Throat: Reports as per HPI Cardiovascular Cardiovascular: Denies chest pain Respiratory Respiratory: Denies chest congestion and Reports cough Gastrointestinal Gastrointestingal: Reports nausea; Denies abdominal pain, constipation, cramping, diarrhea or vomiting Musculoskeletal Musculoskeletal: Denies arthralgias Integumentary/Breasts Skin/Breast: Denies rash Neurologic Neurologic: Denies paresthesias Physical Exam General General appearance: alert and in no apparent distress Head Head exam: atraumatic, normocephalic and normal inspection Eye Eye exam: Present normal appearance, PERRL and EOMI ENT ENT exam: Present normal exam, normal oropharynx, mucous membranes moist, TM's normal bilaterally and normal external ear exam Neck Neck exam: Present normal inspection, full ROM and trachea midline; Absent meningismus or lymphadenopathy Chest Chest inspection: Present normal inspection and symmetric chest wall rise; Absent tenderness Respiratory Respiratory exam: Present normal lung sounds bilaterally; Absent respiratory distress Cardiovascular Cardiovascular exam: Present regular rate and normal rhythm; Absent JVD Abdominal Exam Abdominal exam: Present soft and normal bowel sounds; Absent distention, tenderness or guarding Extremities Exam Extremities exam: Present normal inspection, full ROM and normal capillary refill; Absent calf tenderness Back Exam Back exam: Present normal inspection; Absent tenderness Neurological Exam Neurological exam: Present alert and oriented X3 Psychiatric Psychiatric exam: Present normal affect and normal mood Skin Skin exam: Present warm, dry, intact and normal color Lymphatic Lymphatic Findings: no adenopathy Medical
[2022-06-09 15:47] LABS: UTC Influenza A Antigen Negative (Negative); UTC Strep Screen (Rapid) Negative (Negative)
[2022-06-09 15:48] LABS: UTC Influenza B Antigen Negative (Negative)
[2022-06-09 16:09] VITALS: BP 134/90; PULSE 69; RESP 17; TEMP 36.8
[2022-06-09 16:25] LABS: Adenovirus,PCR Not Detected (NotDetected); Bordetella Pertussis Not Detected (NotDetected); Chlamydophila Pneumoniae, PCR Not Detected (NotDetected); Coronavirus 19, PCR Not Detected (NotDetected); Coronavirus 229E Not Detected (NotDetected); Coronavirus NL63 Not Detected (NotDetected); Coronavirus OC43 Not Detected (NotDetected); Coronovirus HKU1,PCR Not Detected (NotDetected); Human Metapneumovirus Not Detected (NotDetected); Influenza A, PCR Not Detected (NotDetected); Influenza AH1, 2009 Not Detected (NotDetected); Influenza AH1, PCR Not Detected (NotDetected); Influenza AH3,PCR Not Detected (NotDetected); Influenza B, PCR Not Detected (NotDetected); Mycoplasma Pneumoniae, PCR Not Detected (NotDetected); Parainfluenza 1, PCR Not Detected (NotDetected); Parainfluenza 2, PCR Not Detected (NotDetected); Parainfluenza 3, PCR Not Detected (NotDetected); Parainfluenza 4, PCR Not Detected (NotDetected); Respiratory Syncytial Virus Not Detected (NotDetected); Rhinovirus/Enterovirus Not Detected (NotDetected)
== END 2022-06-09 16:15 | disposition home or self-care (01) ==
PROVIDERS: Emergency Provider Nurse Practitioner Family
DX: R51.9 Headache, unspecified (principal); R05.9 Cough, unspecified; J02.9 Acute pharyngitis, unspecified; R09.89 Other specified symptoms and signs involving the circulatory and respiratory systems; B34.9 Viral infection, unspecified
CPT/HCPCS: 87581; 87632; 87798; 87804; 87880; 99212; C9803; G0463; U0003; U0005

== ENCOUNTER → 2022-12-31 10:15 | Outpatient (CLI) | payer BC, SELFPAY ==
[2022-12-31 17:53] LABS: Basophils # 0.1 K/mm3 (0-0.2); Basophils % 0.9 % (0.1-2.0); Eosinophils # 0.3 K/mm3 (0.0-0.4); Eosinophils % 5.3 % (0.1-12.0); Hematocrit 51.3 % (42.0-52.0); Hemoglobin 17.3 g/dL (14.1-18.0); Lymphocytes # 1.8 K/mm3 (0.7-4.5); Lymphocytes % 29.1 % (10-50); Mean Corpuscular HGB Conc 33.8 g/dL (31.8-35.4); Mean Corpuscular Hemoglobin 30.8 pg (27.0-31.2); Mean Corpuscular Volume 91.1 fl (80-94); Mean Platelet Volume 7.4 fl (7.4-10.4); Monocytes # 0.3 K/mm3 (0.1-1.0); Monocytes % 4.6 % (1.7-9.3); Neutrophils # 3.8 K/mm3 (1.8-7.8); Neutrophils % 60.2 % (37.0-80.0); Platelet Count 279 K/mm3 (142-424); Red Blood Count 5.63 M/mm3 (4.60-6.20); White Blood Count 6.3 K/mm3 (4.8-10.8)
[2022-12-31 18:13] LABS: Hemoglobin A1C 5.2 % (4.0-6.0)
[2022-12-31 18:28] LABS: Alanine Aminotransferase 60 U/L (12-78); Albumin Level 4.4 g/dl (3.5-5.0); Albumin/Globulin Ratio 1.6 (1.1-1.8); Alkaline Phosphatase 157 U/L (38-126); Anion Gap 17.7 mEq/L (5-15); Aspartate Amino Transferase 49 U/L (17-59); Blood Urea Nitrogen 12 mg/dl (9-20); Carbon Dioxide 25 mmol/L (22.0-30.0); Chloride 102 mmol/L (98-107); Chol/HDL Ratio 3.6 (1-3.5); Cholesterol 167 mg/dl (140-200); Estimated Glomerular Filt Rate 86 ml/min (>60); GFR (African American) 105 ML/MIN (>60); Globulin 2.8 g/dL (1.3-3.2); Glucose 144 mg/dl (74-100); HDL Cholesterol 47 mg/dl (40-60); Potassium 3.7 mmoL/L (3.5-5.1); Sodium 141 mmol/L (136-145); Total Protein,Serum 7.2 g/dl (6.3-8.2); Triglycerides 287 mg/dl (30-150); VLDL Cholesterol 57 mg/dL (0-40)
[2022-12-31 18:40] LABS: Direct LDL Cholesterol 89.85 mg/dL (100-129)
[2022-12-31 18:47] LABS: 25-OH Vitamin D, Total 22.1 ng/mL (30-100)
[2022-12-31 18:59] LABS: Prostate Specific Ag Screen 22.5 ng/ml (0.0-4.0); Thyroid Stimulating Hormone 0.75 uIU/mL (0.465-4.68)
[2022-12-31 19:18] LABS: Vitamin B12 683 pg/mL (239-931)
== END ==
PROVIDERS: PCP Student in an Organized Health Care Education/Training Program; Visit Provider Student in an Organized Health Care Education/Training Program
DX: R06.02 Shortness of breath (principal); E55.9 Vitamin D deficiency, unspecified; I10 Essential (primary) hypertension; Z13.220 Encounter for screening for lipoid disorders; Z13.21 Encounter for screening for nutritional disorder; Z13.1 Encounter for screening for diabetes mellitus; Z79.899 Other long term (current) drug therapy; Z12.5 Encounter for screening for malignant neoplasm of prostate
CPT/HCPCS: 80053; 80061; 82306; 82607; 83036; 84443; 85025; G0103

== ENCOUNTER → 2023-02-18 12:31 | Outpatient (CLI) | payer BC, SELFPAY ==
--- NOTE | 2023-02-18 | CA_ITS ---
APPROVED REPORT Exam: Pharmacologic Technologist: Diane Vogel, Ht: 5 ft 3 in Wt: 176 lbs BSA: 1.83 m2 HR: 78 bpm BP: 154/90 mmHg Rhythm: NSR, NS ST-T ABNS INFEROLATERALLY Medical History Medical History: HTN, Hyperlipidemia Medications: Irbesartan,,,,, Atorvastatin,,,,, Vit D3,,,,, Metoprolol Succinate ER,,,,, CyclobenzOPRINE,,,,, Allergies: No known drug allergies Cardiac Risk Factors: HTN, Hyperlipidemia Stress Test Details Test: LEXISCAN HR Resting HR: 75 bpm Max Heart Rate (APMHR): 160 bpm Max HR Achieved: 92 bpm Target HR (85% APMHR): 136 bpm % of APMHR: 58 Recovery HR: 67 bpm BP Resting BP: 154/90 mmHg Max BP: 155/86 mmHg Recovery BP: 150.0/88.0 mmHg ECG Resting ECG: NSR, NS ST-T ABNS INFEROLATERALLY Stress ECG: NO CHANGE Arrhythmia: NONE Recovery ECG: NO CHANGE Recovery Arrhythmia: NONE Clinical Exercise duration: 04:06 min Highest Stage Achieved: Exercise capacity: n/a METs Stress ECG Conclusion PT HAD MILD STOMACH DISCOMFORT NO CP NS T WAVE CHANGES UNREMARKABLE LEXISCAN STRESS MYOVIEW IMAGES REPORTED SEPARATELY Test Summary REST 02:31 . . 75 . 154/ 90 . . Stage 1 01:00 . . 88 . . . . Stage 2 01:00 . . 74 . . . . Stage 3 01:00 . . 72 . 155/ 86 . . Stage 4 01:00 . . 70 . 152/ 86 . . Stage 4 01:06 . . 69 . 152/ 86 . Stop exercise at 04:06 RECOVERY 01:00 . . 67 . 141/ 86 . . RECOVERY 02:00 . . 69 . 142/ 87 . . RECOVERY 03:00 . . 68 . 150/ 88 . . RECOVERY 03:16 . . 68 . 150/ 88 . . Electronically signed by : Rosanna Arias, 02/20/2023 16:07:39
--- NOTE | 2023-02-18 12:41 | NM_ITS ---
APPROVED REPORT Exam: Nuclear Stress Test Indication: chest pain..soa..fatigue Patient Location: Outpatient Stress Tech: Diane Vogel DC Tech:Arielle Tejada TIMHarry RT(R)(N) Ht: 5 ft 3 in Wt: 170 lbs HR: 75 bpm BP: 154/90 mmHg BSA: 1.80 m2 TID: 1.03 BMI: 30.1 History: chest pain..soa..fatigue Procedure: Patient received 0.4 mg of intravenous Lexiscan, resting heart rate 75 bpm, resting blood pressure 154/90 mmHg, with Lexiscan maximum heart rate achieved was 92 bpm which is 85 % of the maximum predicted heart rate and blood pressure was 155/86 mmHg. With Lexiscan, patient denied any complaint of chest pain. The patient was unable to lay on his belly for prone images. Cardiac Stress and Resting SPECT Images: Cardiac Stress and Resting SPECT images were obtained using technetium 99m Myoview 30.7 mCi stress and 10.22 mCi at rest. The patient was unable to lie on his abdomen, and thereby prone stress imaging could not be performed. This may affect the diagnostic interpretation of the study findings. Resting and stress imaging in supine position demonstrate a medium-sized, mild, fixed perfusion defect in the basal inferior LV wall. This may represent diaphragmatic attenuation, but true perfusion defect cannot be ruled out. Gated imaging demonstrates mild reduction in global and regional LV systolic function. LVEF is calculated at 42%. Conclusion: The patient was unable to lie on his abdomen, and thereby prone stress imaging could not be performed. This may affect the diagnostic interpretation of the study findings. Medium-sized, mild, fixed perfusion defect in the basal inferior LV wall. This may represent diaphragmatic attenuation, but true perfusion defect cannot be ruled out. No evidence of reversible ischemia. Gated imaging demonstrates mild reduction in global and regional LV systolic function. LVEF is calculated at 42%. Electronically signed by : Rosanna Arias, 02/20/2023 16:12:25
--- NOTE | 2023-02-18 13:34 | US_ITS ---
FINAL REPORT CLINICAL HISTORY: claudication,DM,HTN,SMOKER C/O LEFT THIGH DISCOMFORT FINDINGS: COMPLETE ANKLE/BRACHIAL INDICES BILATERAL Complete ankle brachial indices were obtained. The right MARCELA is 1.3. The left MARCELA is 1.4. IMPRESSION: ABIs are within normal limits bilaterally. Reviewed, Interpreted and Dictated by Mary Perez MD Transcribed by Jazmin Calvillo Authenticated and [facility]
[2023-02-18 16:37] LABS: Erythrocyte Sedimentation Rate 1 mm/hr (0-20)
[2023-02-18 18:07] LABS: Vitamin B12 812 pg/mL (239-931)
[2023-02-23 20:14] LABS: Vitamin B1 171.6 nmol/L (66.5-200.0)
== END ==
LOC: RAD 12:32
PROVIDERS: PCP Student in an Organized Health Care Education/Training Program; Referring Provider Specialist; Visit Provider Physician Assistant
DX: R06.00 Dyspnea, unspecified (principal); R07.89 Other chest pain; I73.9 Peripheral vascular disease, unspecified; M79.606 Pain in leg, unspecified; R94.31 Abnormal electrocardiogram [ECG] [EKG]; E78.5 Hyperlipidemia, unspecified; I10 Essential (primary) hypertension; R20.2 Paresthesia of skin; E66.9 Obesity, unspecified; Z68.30 Body mass index [BMI] 30.0-30.9, adult
CPT/HCPCS: 36415; 78452; 82607; 82746; 84425; 85651; 93017; 93306; 93923; A9502; J2785

== ENCOUNTER → 2023-03-01 08:59 | Outpatient (CLI) | payer BC, SELFPAY ==
--- NOTE | 2023-03-01 17:12 | MR_ITS ---
PROCEDURE INFORMATION: Exam: MR Cervical Spine Without Contrast Exam date and time: 03/01/2023 5:48 PM Age: 58 years old Clinical indication: Neck pain; Additional info: Pain, numbness, tingling bilateral arms, fingers TECHNIQUE: Imaging protocol: Magnetic resonance imaging of the cervical spine without contrast. COMPARISON: CR XR CHEST 2V 02/03/2022 9:55 PM FINDINGS: Bones/joints: There is preservation of vertebral alignment. Vertebral bodies normal discogenic changes noted at C3-C4 and C5 levels.No marrow replacing process. Spinal cord: There is a focal T2 hyperintensity at C3-C4 level favored to represent myelomalacia from extrinsic compression. Spinal cord is otherwise normal in signal characteristics. C2-C3: There is a shallow central disc protrusion. No significant spinal canal stenosis. There is no significant neural foraminal narrowing. C3-C4: There is a central disc protrusion. There is severe spinal canal stenosis. Uncovertebral and facet arthropathy produce severe bilateral neural foraminal narrowing. C4-C5: There is a shallow central disc protrusion. No significant spinal canal stenosis. Uncovertebral and facet arthropathy produce moderate bilateral neural foraminal narrowing. C5-C6: There is central disc protrusion. There is severe spinal canal stenosis. Uncovertebral and facet arthropathy produce severe bilateral neural foraminal narrowing. C6-C7: No evidence of spinal canal stenosis or neural foraminal narrowing. C7-T1: No significant disc bulge or herniation. No severe spinal canal stenosis. No significant neural foraminal narrowing. Soft tissues: Unremarkable. Vasculature: Expected flow voids in the vertebral arteries. IMPRESSION: Multilevel degenerative changes more pronounced C3-C4 and C5-C6 contributing to severe spinal canal stenoses.
== END ==
LOC: RAD 08:59
PROVIDERS: PCP Student in an Organized Health Care Education/Training Program; Visit Provider Specialist
DX: M19.90 Unspecified osteoarthritis, unspecified site (principal); M43.02 Spondylolysis, cervical region; M50.20 Other cervical disc displacement, unspecified cervical region
CPT/HCPCS: 72141; 76376

== ENCOUNTER → 2023-03-03 14:10 | Outpatient (CLI) | payer BC, SELFPAY | PROVIDERS: PCP Student in an Organized Health Care Education/Training Program; Visit Provider Specialist | DX: G47.33 Obstructive sleep apnea (adult) (pediatric) (principal); R06.83 Snoring | CPT/HCPCS: G0399 ==

== ENCOUNTER 2023-06-01 13:16 | Emergency (ER) | payer BC, SELFPAY ==
[2023-06-01 14:00] VITALS: BP 140/85; PULSE 84; RESP 18; TEMP 36.8; O2SAT 98; BMI 25.9
[2023-06-01 14:22] LABS: UTC Strep Screen (Rapid) Negative (Negative)
[2023-06-01 14:23] LABS: UTC Influenza A Antigen Negative (Negative); UTC Influenza B Antigen Negative (Negative)
--- NOTE | 2023-06-01 14:26 | EXP.UTC ---
Discharge Plan Disposition Patient Disposition: Home, Self-Care Condition: Good Prescriptions Prescriptions: New azithromycin [Zithromax Z-Addison] 250 mg tablet See Rx Instructions .ROUTE .COMPLEX 5 Days Qty: 6 0RF Rx Instructions: For 250 mg dose pack: take 500 mg today (day 1), then 250 mg for 4 days (days 2-5) methylprednisolone [Medrol (Addison)] 4 mg tablets,dose pack See Rx Instructions .Route .COMPLEX 6 Days Qty: 21 0RF Rx Instructions: taper pack; guaifenesin [Mucinex] 600 mg tablet extended release 12hr 600 mg PO BID PRN (Reason: cough) Qty: 20 0RF No Action atorvastatin 10 mg tablet 10 mg PO DAILY Qty: 30 2RF cholecalciferol (vitamin D3) 25 mcg (1,000 unit) capsule 25 mcg PO DAILY Qty: 30 2RF metoprolol succinate [Toprol XL] 25 mg tablet extended release 24 hr 25 mg PO DAILY Qty: 30 5RF irbesartan 75 mg tablet 75 mg PO DAILY Qty: 30 2RF Referrals Follow up/Referrals: Lakeisha Bonner PA [Primary Care Provider] - See instructions Activity Restrictions/Add. Instructions Additional Instructions/Restrictions: *Monitor Temp, Over the counter Motrin or Tylenol as directed/as needed Tylenol every 4 hours and Motrin every 6 hours (as long as your family doctor has told you that you can take it) for fever or pain. and straight to ER if unable to lower temp less than 101.0 after medication given *Warm salt water gargles may help to soothe the throat *Throat Lozenges? *Warm fluids like tea with honey may help to soothe the throat? *Sleep elevated *Humidifier/Vaporizer *Your throat swab was sent for culture. Those results are typically sent to your primary care. Be sure to follow up in 2-3 days with your family doctor/primary care physician if no improvement so they can review those result and treat if necessary. If you don?t have a primary care doctor, I recommend you get one but in the mean time, you will have to return to a walk in clinic Follow up IMMEDIATELY for new or worsening symptoms or no Noticeable improvement over the next 48-72 hours. 911 for difficulty breathing or swallowing Clinical Impressions Clinical Impression: Sinusitis Qualifiers: Sinusitis location: unspecified location Chronicity: unspecified Qualified Code(s): J32.9 - Chronic sinusitis, unspecified Stand Alone Forms Stand Alone Forms: Work/School Release Instructions Patient Instructions: DI for Sinusitis, Sinusitis Discharge ED Provider: Anju Shaw [facility] [place] HPI General Stated complaint: congestion, cough, body aches, RODRIGUEZ Mode of Arrival: Ambulatory Source of Information: Patient Limitations: No Limitations Time Seen by Provider: 06/01/23 14:26 Description of Symptoms (Recalled from Triage Doc. by RN): PATIENT C/O HEADACHE, SORE THROAT, RUNNY NOSE, COUGH AND BODY ACHES SINCE YESTERDAY HEENT Symptoms (Recalled from RN notes): Yes Resp Symptoms (Recalled from RN notes): Yes Skin Symptoms (Recalled from RN notes): No MS Symptoms (Recalled from RN notes): No Functional Status (Recalled from RN notes): WNL History of Present Illness Provider Complaint: Patient Cook Islander speaking but can understand Turkish and communicate in Turkish states that he hasnt been feeling well for close to a week but symptoms got worse yesterday States that his sore throat, sinus congestion and pressure cough and body aches was worse States that today he has a sinus headache Related Data Previous Rx's Medication Instructions Recorded atorvastatin 10 mg tablet 10 mg PO DAILY #30 tabs 01/03/23 cholecalciferol (vitamin D3) 25 25 mcg PO DAILY #30 caps 01/03/23 mcg (1,000 unit) capsule irbesartan 75 mg tablet 75 mg PO DAILY #30 tabs 01/31/23 metoprolol succinate 25 mg 25 mg PO DAILY #30 tabs 01/31/23 tablet,extended release 24 hr (Toprol XL) azithromycin 250 mg tablet See Rx Instructions PO .COMPLEX 5 06/01/23 (Zithromax Z-Addison) days #6 tabs guaifenesin 600 mg tablet, 600 mg PO
[2023-06-01 14:39] VITALS: BP 140/85; PULSE 84; RESP 18; TEMP 36.8; O2SAT 98
== END 2023-06-01 14:47 | disposition home or self-care (01) ==
PROVIDERS: Emergency Provider Nurse Practitioner; PCP Student in an Organized Health Care Education/Training Program
DX: J01.90 Acute sinusitis, unspecified (principal); Z87.891 Personal history of nicotine dependence
CPT/HCPCS: 87804; 87880; 99212; 99214; G0463

== ENCOUNTER 2024-08-27 16:56 | Emergency (ER) | payer SELFPAY ==
--- NOTE | 2024-08-27 17:01 | XR_ITS ---
PROCEDURE INFORMATION: Exam: XR Left Foot Exam date and time: 08/27/2024 5:12 PM Age: 59 years old Clinical indication: Pain; Foot; Left; Additional info: Fall TECHNIQUE: Imaging protocol: Radiologic exam of the left foot. Views: 3 or more views. COMPARISON: CR Lower leg L 08/27/2024 5:09 PM FINDINGS: Bones/joints: Mildly displaced 5th metatarsal base avulsion fracture. Soft tissues: Soft tissue swelling. Vasculature: Vascular calcifications. IMPRESSION: Mildly displaced 5th metatarsal base avulsion fracture.
--- NOTE | 2024-08-27 17:01 | XR_ITS ---
PROCEDURE INFORMATION: Exam: XR Left Knee Exam date and time: 08/27/2024 5:11 PM Age: 59 years old Clinical indication: Pain; Knee; Left; Additional info: Fall TECHNIQUE: Imaging protocol: Radiologic exam of the left knee. Views: 3 views. COMPARISON: CR Lower leg L 08/27/2024 5:09 PM FINDINGS: Bones/joints: No acute fracture or malalignment. Osteoarthritis. No joint effusion. Soft tissues: Unremarkable. Vasculature: Vascular calcifications. IMPRESSION: No acute osseous findings.
--- NOTE | 2024-08-27 17:01 | XR_ITS ---
PROCEDURE INFORMATION: Exam: XR Left Ankle Exam date and time: 08/27/2024 5:08 PM Age: 59 years old Clinical indication: Pain; Ankle; Left; Additional info: Fall TECHNIQUE: Imaging protocol: Radiologic exam of the left ankle. Views: 3 or more views. COMPARISON: US ARTERIAL LOWER EXT REST 02/18/2023 2:09 PM FINDINGS: Bones/joints: No acute fracture or malalignment. 5.5 mm lucency of the medial talar dome with peripheral sclerosis. No detached osteochondral fragment. Soft tissues: Soft tissue swelling. Vasculature: Vascular calcifications. IMPRESSION: 1. No acute osseous findings. 2. Chronic 5.5 mm medial talar dome osteochondral defect.
--- NOTE | 2024-08-27 17:01 | XR_ITS ---
PROCEDURE INFORMATION: Exam: XR Left Tibia and Fibula Exam date and time: 08/27/2024 5:09 PM Age: 59 years old Clinical indication: Pain; Lower leg; Left; Additional info: Fall TECHNIQUE: Imaging protocol: Radiologic exam of the left tibia and fibula. Views: 2 views. COMPARISON: CR XR ANKLE LT MIN 3V 08/27/2024 5:08 PM FINDINGS: Bones/joints: No acute fracture or malalignment. Osteoarthritis. Soft tissues: Distal leg and ankle soft tissue swelling. Vasculature: Vascular calcifications. IMPRESSION: No acute osseous findings.
[2024-08-27 17:35] VITALS: BP 149/69; PULSE 84; RESP 18; TEMP 36.9; O2SAT 97; BMI 30.1
--- NOTE | 2024-08-27 17:46 | ED_ITS ---
Discharge Plan Disposition Patient Disposition: Home, Self-Care Condition: Good Prescriptions Prescriptions: No Action atorvastatin 10 mg tablet 10 mg PO DAILY Qty: 30 2RF cholecalciferol (vitamin D3) 25 mcg (1,000 unit) capsule 25 mcg PO DAILY Qty: 30 2RF metoprolol succinate [Toprol XL] 25 mg tablet extended release 24 hr 25 mg PO DAILY Qty: 30 5RF irbesartan 75 mg tablet 75 mg PO DAILY Qty: 30 2RF azithromycin [Zithromax Z-Addison] 250 mg tablet See Rx Instructions .ROUTE .COMPLEX 5 Days Qty: 6 0RF Rx Instructions: For 250 mg dose pack: take 500 mg today (day 1), then 250 mg for 4 days (days 2-5) methylprednisolone [Medrol (Addison)] 4 mg tablets,dose pack See Rx Instructions .Route .COMPLEX 6 Days Qty: 21 0RF Rx Instructions: taper pack; guaifenesin [Mucinex] 600 mg tablet extended release 12hr 600 mg PO BID PRN (Reason: cough) Qty: 20 0RF Referrals Follow up/Referrals: Lakeisha Bonner PA [Primary Care Provider] - See instructions Doroteo Jackson DO [Staff Physician] - See instructions (Call office for appointment) Activity Restrictions/Add. Instructions Additional Instructions/Restrictions: *weight bearing as tolerated if you walk on it walk on heel area and use crutches *RICE, Rest the extremity, Ice 15-20 minutes 3-4 times daily, Compress- wear the olivia wrap as discussed as much as possible to help reduce swelling and pain, Elevate the extremity when at rest *Walking boot is for support and help control swelling, use it except in the shower. Be sure that is not to tight but not to loose either *Elevate when resting? *Ibuprofen 600-800mg every 6-8 hours as needed for pain an inflammation. If need something more can take Tylenol in between doses of Ibuprofen to help Immediately follow up with your family doctor for new or worsening of symptoms, or no noticeable improvement over the next 3-[address] Weston office Orthopedics and make appointment Clinical Impressions Clinical Impression: Avulsion fracture of bone Instructions Patient Instructions: How to Use Crutches, How To Perform RICE (Rest, Ice, Compress, Elevate), Ibuprofen, How to Use a Walking Boot Print Language Print Language: Georgian Discharge ED Provider[place] Anju Shaw [facility] [place] General Stated complaint: AO01/26 LT leg and foot inj Mode of Arrival: Ambulatory Source of Information: Patient and Spouse Limitations: No Limitations Time Seen by Provider: 08/27/24 17:46 Description of Symptoms (Recalled from Triage Doc. 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 PATIENT C/O PAIN TO LEFT LOWER LEG AND FOOT. SWELLING AND ABRASION NOTED TO LEFT FOOT HEENT Symptoms (Recalled from RN notes): No Resp Symptoms (Recalled from RN notes): No Skin Symptoms (Recalled from RN notes): No MS Symptoms (Recalled from RN notes): Yes Functional Status (Recalled from RN notes): WNL History of Present Illness Provider Complaint: Patient states that he was on a gator [employer] yesterday going to feed the cows when it rolled over and landed on his left foot States he has been up walking on it but has continued to have pain in his left knee, lower leg, and swelling and bruising in his left foot States today family wouldnt leave him alone until he came in to get it checked Denies any other injury Related Data Previous Rx's ?Medication ?Instructions ?Recorded atorvastatin 10 mg tablet 10 mg PO DAILY #30 tabs 01/03/23 cholecalciferol (vitamin D3) 25 25 mcg PO DAILY #30 caps 01/03/23 mcg (1,000 unit) capsule irbesartan 75 mg tablet 75 mg PO DAILY #30 tabs 01/31/23 metoprolol succinate 25 mg 25 mg PO DAILY #30 tabs 01/31/23 tablet,extended release 24 hr (Toprol XL) azithromycin 250 mg tablet See Rx Instructions PO .COMPLEX 5 06/01/23 (Zithromax Z-Addison) days #6 tabs guaifenesin 600 mg tablet, 600 mg PO BID PRN cough #20 tabs 06/01/23 extended release 12 hr (Mucinex) methylprednisolone 4 mg tablets in See Rx Instructions .Route 06/01/23 a dose pack (Medrol (Addison)) .COMPLEX 6 days #21 tabs Allergies Allergy/AdvReac Type Severity Reaction Status Date / Time No Known Allergies Allergy Verified 03/07/23 09:43 Worker's Comp Is this a Worker's Comp case?: No [facility] Disclaimer: The information contained in this section may have been updated after the patient was seen, as this information can be updated by other users. Family History Other Coronary artery disease Diabetes Social History Smoking Status: Former smoker alcohol intake: former substance use type: denies use current occupational status: employed Travel in the last 8 weeks: None household members: spouse and other housing: other marital status: Have you lived/traveled outside [place] in past 30 days?: No Contact w/someone who lives/traveled outside [place] past 30 days?: No Exposure to someone with infectious disease in past 14 days?: No Do you have a fever (greater than 100.4 F or 38 C)?: No Have you tested positive for COVID-19: No Exposed to someone with COVID-19 in past 14 days?: No Do you have a sore throat?: No Do you have a cough?: No Do you have any weakness?: No Do you have any diarrhea?: No Are you experiencing any unusual bleeding?: No Do you have any muscle aches/pain?: No Do you have any abdominal pain?: No Are you experiencing loss of taste or smell?: No ROS Obtained: Yes All systems reviewed & no additional complaints except as documented and Yes Systems reviewed as appropriate & no additional complaints except as documented Constitutional Constitutional: Reports system reviewed and no additional complaints, except as documented and Reports as per HPI ENT Ears, Nose, Mouth, and Throat: Reports system reviewed and no additional complaints, except as documented and Reports as per HPI Cardiovascular Cardiovascular: Reports system reviewed and no additional complaints, except as documented and Reports as per HPI Respiratory Respiratory: Reports system reviewed and no additional complaints, except as documented and Reports as per HPI Gastrointestinal Gastrointestingal: Reports system reviewed and no additional complaints, except as documented and as per HPI Genitourinary Male Genitourinary: Reports system reviewed and no additional complaints, except as documented and Reports as per HPI Musculoskeletal Musculoskeletal: Reports system reviewed and no additional complaints, except as documented and Reports as per HPI Comments: Pain in his left knee, left lower leg and left foot and ankle with bruising denies any other injury Physical Exam General General appearance: alert and in no apparent distress Head Head exam: atraumatic, normocephalic and normal inspection Eye Eye exam: Present normal appearance, PERRL and EOMI Respiratory Respiratory exam: Present normal lung sounds bilaterally; Absent respiratory distress or wheezes Cardiovascular Cardiovascular exam: Present regular rate, normal rhythm and normal heart sounds Abdominal Exam Abdominal exam: Present soft and normal bowel sounds; Absent distention or tenderness Expanded Lower Extremity Exam Left: Knee exam: Present tenderness; Absent swelling Lower leg exam: Present tenderness; Absent swelling, abrasion or ecchymosis Ankle exam: Present tenderness, swelling, abrasion and ecchymosis; Absent erythema Ankle image: 2 1. swelling and bruising noted, + pedal pulse noted 2. small abrasion noted, swelling and bruising noted + pedal pulse noted Foot/toe exam: Present tenderness, swelling, abrasion and ecchymosis Gait: observed and limited by pain (using crutches) Neurological Exam Neurological exam: Present alert and oriented X3 Medical Decision Making Medical Records Screening: Per USPSTF and CDC recommendations, given the prevalence of disease in our region, it is our hospital?s policy to screen for HIV and viral Hepatitis for all patients aged 18 and over and those with ongoing risk factors. Ty Inquiry Pt receiving controlled substance: No Ty was queried for this patient: No Vital Signs: 08/27/24 17:35 Temperature 98.4 F Temperature Source Oral Pulse Rate [Left Brachial] 84 Respiratory Rate 18 Blood Pressure [Left Arm] 149/69 H Blood Pressure Mean [Left Arm] 95 Blood Pressure Source [Left Arm] Automatic Cuff Blood Pressure Position [Left Arm] Sitting 02 Sat by Pulse Oximetry 97 Oxygen Delivery Method Room Air Orders (Tests/Meds): ORDERS Category Date Time Status XR ankle LT min 3V Stat Exams 08/27/24 17:01 Taken XR foot LT min 3V Stat Exams 08/27/24 17:01 Taken XR knee LT 3V Stat Exams 08/27/24 17:01 Taken XR tibia fibula LT 2V Stat Exams 08/27/24 17:01 Taken Radiology Data #1: Image(s): Knee and Tib/Fib Image Reviewed: Yes I have reviewed radiologist's interpretation Tibia Fibula: IMPRESSION: No acute osseous findings. Knee: IMPRESSION: No acute osseous findings. #2: Image(s): Ankle Image Reviewed: Yes I have reviewed radiologist's interpretation IMPRESSION: 1. No acute osseous findings. 2. Chronic 5.5 mm medial talar dome osteochondral defect. #3: Image(s): Foot/Toes Image Reviewed: Yes I have reviewed radiologist's interpretation IMPRESSION: Mildly displaced 5th metatarsal base avulsion fracture. Physician Consults Physician Consulted: Dr Jackson Time: 18:21 Reason -: Orthopedic Eval/Care Comment/Response: spoke with Dr Jackson informed him of xray readings on ankle and foot will place in walking boot may walk on heel area and call office for appointment RICE Medical Decision Narrative: small nonstick applied to abrasion patient educated to clean area with antibacterial soap and water and monitor for signs of infection and rubbing from boot Procedures Orthopedic Splinting/Casting Injury #1: Side: left Lower Extremity Injury Location: ankle and foot Lower Extremity Immobilizer: boot orthosis and applied by nurse/dr shaw Other Orthopedic Equipment: crutches (has crutches from home) Post Cast/Splinting Neuro Status: intact and no change Post Cast/Splinting Vasc Status: intact and no change
[2024-08-27 18:29] VITALS: BP 149/69; PULSE 84; RESP 18; TEMP 36.9; O2SAT 97
== END 2024-08-27 18:39 | disposition home or self-care (01) ==
PROVIDERS: Emergency Provider Nurse Practitioner; PCP Student in an Organized Health Care Education/Training Program
DX: S92.352A Displaced fracture of fifth metatarsal bone, left foot, initial encounter for closed fracture (principal)
CPT/HCPCS: 73562; 73590; 73610; 73630; 99214; G0381